=== PATIENT | female | born 1965 | race Two or more races ===

== ENCOUNTER 2024-10-14 13:23 | Outpatient (AMB) | payer MEDICAID, SELFPAY ==
[2024-10-14 13:47] VITALS: BP 139/85; PULSE 75; RESP 18; TEMP 35.3; O2SAT 96; BMI 39.1
--- NOTE | 2024-10-14 13:47 | PD.ORTHCLVIS ---
Vital signs 10/14/24 13:47 Height 1.55 m Height Method Stated Weight 94.007 kg Weight Measurement Method Standing Scale BMI 39.1 BP 139/85 H Blood Pressure Source Automatic Cuff Blood Pressure Location Left Upper Arm Position Sitting Respiration 18 Pulse 75 Pulse Source Monitor Temp 95.6 F L Temp Source Temporal Artery Scan Pulse Oximetry (%) 96 Oxygen Delivery Method Room Air Med/Allergies Allergies & Medications Allergies Penicillins Allergy (Intermediate, Verified 10/14/24 13:49) Rash Medication Reconciliation metformin 1,000 mg tablet 1,000 mg PO BID 04/21/19 [History Confirmed 10/14/24] atorvastatin 20 mg tablet 20 mg PO QDAY 08/30/22 [History Confirmed 10/14/24] clindamycin HCl 300 mg capsule 300 mg PO Q6H 08/30/22 [History Confirmed 10/14/24] docusate sodium 100 mg capsule 100 mg PO QDAY PRN Constipation 08/30/22 [History Confirmed 10/14/24] enalapril maleate 2.5 mg tablet 2.5 mg PO QDAY 08/30/22 [History Confirmed 10/14/24] ibuprofen 600 mg tablet 600 mg PO TID PRN Pain 08/30/22 [History Confirmed 10/14/24] semaglutide 0.25 mg or 0.5 mg (2 mg/1.5 mL) subcutaneous pen injector (Ozempic) 0.5 mg subcut QWEEK 08/30/22 [History Confirmed 10/14/24] Subjective Visit Visit for: new patient and knee (left) Immunization / Flu Flu Vaccine in the Last 12 Months: Yes Flu Vaccine Exclusion Criteria: Already Received History of Present Illness Chief complaint: LEFT KNEE PAIN Jolynn is a pleasant 58 year old female coming in today for left knee pain. She States that the pain began when she fell at home about 6 years ago. Patient has tried conservative treatment and had 2 knee injections about a month ago which did help relief her pain. Denies physical therapy. Patient did report she has diabetes but is controlled. Personal History Occupation: disabled Pain Pain level (0-10): 4 Pain duration: on and off Pain location: inside (medial) Pain quality: dull and aching Pain timing: night and increases with activity Associated signs & symptoms: weakness Ambulatory data Ambulatory device: none Treatments Number of previous injections: 2 Improvement with previous injections: No Improvement with PT: No Improvement with NSAIDS: no Review of Systems Review of Systems: All systems negative unless otherwise noted in HPI. Exam Exam Patient is in no acute distress and is cooperative with the examination today. Breathing is nonlabored. In no respiratory distress. Bilateral extremities were evaluated and demonstrates sensation intact to light touch. Palpable pedal pulses are present. No significant edema is present. Bilateral hips were examined. The patient has no pain with log roll of the hips. Internal rotation to 30 degrees and external rotation to 30 degrees is painless. Negative FADIR. The left knee was examined. The left knee is in varus alignment. Range of motion from 0-115 degrees. Knee is stable to varus and valgus as well as AP translation with <5mm. Patient has a negative McMurrays. There is no pain with patellofemoral compression and no crepitus noted. The knee is tender to palpation medially and laterally. The right knee was also examined. The right knee is in valgus alignment. Range of motion from 0-120 degrees. Knee is stable to varus and valgus as well as AP translation with <5mm. Patient has a negative McMurrays. There is no pain with patellofemoral compression and no crepitus noted. The knee is tender to palpation medially and laterally Patient has no x-rays today Assessment and Plan Problem List (1) Bilateral primary osteoarthritis of knee: Status: Acute Plan: Patient is a pleasant 58-year-old female with bilateral knee pain and bilateral knee arthritis. She has no recent x-rays that are weightbearing. I like to see weightbearing x-rays and we can discuss different treatment options depending on what that shows Office Procedures GNS Level of Care Nursing/Assessment Patient Status: Established Patient Nursing Assessment/Reassesment: Medication Reconciliation, Update PMH in EMR and Vital Signs Coordination of Care: Complex Care and Chronic Disease 1-5, Education Complex Pt/Fam, Consent,records obtained, informed consent, Results/Orders obtained and Staff clarify orders Established Patient Charge Established Patient Point Assignment: 95 Established Patient Point Charge: EP Level 3 (80-115) Past Medical History Past Medical History Have you ever been diagnosed with any of the following: Neurological Problems Seizures: No Cardiology Problems Congestive Heart Failure: No Hypertension: Yes Varicose Veins: Yes Respiratory Problems Chronic Obstructive Pulmonary Disease (COPD): No Asthma: Yes (ASTHMA) Smoking: No Smoking Exposure: No Genital/Urinary Problems Renal Disease: No Reproductive Problems Previous Pregnancies: Yes Endocrine Problems Diabetes Mellitus Type 1: No Diabetes Mellitus Type 2: Yes Blood Problems Sickle Cell Disease: No Other Problems Hospitalization: No Falls: No Blood Transfusions: No Blood Transfusion Reaction: No Anesthesia Reactions: No Chemotherapy: No Radiation Therapy: No MRSA: No Measles: Yes
== END 2024-10-14 14:14 | disposition home or self-care (01) ==
LOC: HODSRG 13:23
PROVIDERS: PCP Nurse Practitioner Family; Referring Provider Nurse Practitioner Family; Supervising Provider Orthopaedic Surgery Adult Reconstructive Orthopaedic Surgery; Visit Provider Orthopaedic Surgery Adult Reconstructive Orthopaedic Surgery
DX: M17.0 Bilateral primary osteoarthritis of knee (principal); M25.562 Pain in left knee; M25.561 Pain in right knee; I10 Essential (primary) hypertension
CPT/HCPCS: 99213; G0463

== ENCOUNTER → 2024-10-14 | Outpatient (CLI) | payer MEDICAID, SELFPAY ==
--- NOTE | 2024-10-14 14:36 | XR_ITS ---
Examination: Bilateral knees 2 views Right lateral knee left ovary 2 views Right axial knee left axial knee 2 views TECHNIQUE: Bilateral AP knees standing single view, bilateral PA knees standing single view 30 degrees flexion Standing right lateral knee left lateral knee 2 views Right axial knee left axial knee 2 views total 6 views Exam date and time: October 14, 2024 1548 hours INDICATIONS: Bilateral knee pain months ago. FINDINGS: Moderate osteopenia Mild to moderate narrowing medial joint spaces Mild bilateral osteoarthritis patellofemoral joints slightly more severe left patellofemoral joint No fracture or dislocation IMPRESSION: Mild to moderate narrowing medial joint spaces
== END | disposition home or self-care (01) ==
PROVIDERS: PCP Nurse Practitioner Family; Referring Provider Orthopaedic Surgery Adult Reconstructive Orthopaedic Surgery; Visit Provider Orthopaedic Surgery Adult Reconstructive Orthopaedic Surgery
DX: M25.862 Other specified joint disorders, left knee (principal); M25.861 Other specified joint disorders, right knee
CPT/HCPCS: 73564